=== PATIENT | male | born 1995 | race Caucasian/White ===

== ENCOUNTER 2017-04-22 23:48 | Emergency (ER) | payer BC ==
[~2017-04-22] VITALS: Ht 193 cm; Wt 79.5 kg
[2017-04-22 23:51] VITALS: TEMP 36.4; Ht 193 cm; Wt 79.5 kg
[2017-04-23 00:26] LABS: ISTAT HEMOGLOBIN 16.7 g/dl (14.0-18.0); ISTAT IONIZED CALCIUM 1.22 mmol/l
[2017-04-23 00:29] LABS: POINT OF CARE TROPONIN I < 0.030 ng/ml (0-0.045)
[2017-04-23 00:34] VITALS: BP 96/76; PULSE 71; O2SAT 100
--- NOTE | 2017-04-23 00:45 | EMERGENCY ROOM VISIT NOTE ---
History Report prepared by Sanjay: Tami Jackson Under the Supervision of: Dr. Vishal Amos D.O. First contact with patient: 23:57 Chief Complaint: CHEST PAIN Stated Complaint: SHARP PAIN IN LEFT CHEST, LIGHT HEADNESS, NUMB ARM History of Present Illness The patient is a 21 year old male who presents to the Emergency Room with complaints of constant left sided chest pain beginning just FAITH [facility]. The patient states that he was sitting on the couch when he had a sharp chest pain and his arms and the back of his head began tingling. He reports that he was playing video games when his symptoms occurred. The patient notes that 2 weeks prior to coming to [facility] he had intermittent heavy breathing that he saw his PCP for. He notes that his PCP saw an arrhythmia on EKG and suggested he see a outreach associate. He reports that he got an echocardiogram with the outreach associate that was normal. The patient complains of a sore throat last week that has resolved and heavy breathing today. He denies any current illness. 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 Denies any current illness. Review of Systems See HPI for pertinent positives & negatives. A total of 10 systems reviewed and were otherwise negative. Past Medical & Surgical Medical Problems: (1) No Known Active Medical Problems Family History No pertinent family history stated. Social History Smoking Status: Never Smoker Marital Status: single Housing Status: lives with roommate Occupation Status: [employer] [facility] [employer] student Current/Historical Medications No Active Prescriptions or Reported Meds Allergies Coded Allergies: No Known Allergies (Unverified , 04/23/17) Physical Exam Vital Signs Date Time Temp Pulse Resp B/P (MAP) Pulse Ox O2 Delivery O2 Flow Rate FiO2 04/23/17 00:36 Room Air 04/23/17 00:34 71 20 96/76 100 Room Air 04/22/17 23:51 36.4 81 20 145/63 99 Room Air Physical Exam CONSTITUTIONAL/VITAL SIGNS: Reviewed / noted above. GENERAL: Non-toxic in appearance. INTEGUMENTARY: Warm, dry, and [place]. HEAD: Normocephalic. EYES: without scleral icterus or trauma. ENT/OROPHARYNX: clear and moist. LYMPHADENOPATHY/NECK: Is supple without lymphadenopathy or meningismus. RESPIRATORY: Lungs clear and equal. CARDIOVASCULAR: Regular rate and rhythm. GI/ABDOMEN: Soft and nontender. No organomegaly or pulsatile mass. No rebound or guarding. Normal bowel sounds. EXTREMITIES: Warm and well perfused. BACK: No CVA tenderness. NEUROLOGICAL: Intact without focal deficits. PSYCHIATRIC: normal affect. MUSCULOSKELETAL: Normally developed with good muscle tone. Medical Decision & Procedures ER Provider Diagnostic Interpretation: X ray results and stated below per my interpretation. Chest X-Ray: No acute disease, no pneumonia, no pneumothorax. Laboratory Results Test 04/23/17 00:10 04/23/17 00:12 Bedside D-Dimer 194 ng/mlFEU (0-450) Bedside Troponin I < 0.030 ng/ml (0-0.045) Bedside Hemoglobin 16.7 g/dl (14.0-18.0) Bedside Hematocrit 49 % (42-52) Bedside Sodium 143 mEq/L (135-144) Bedside Potassium 3.0 mEq/L (3.3-5.0) Bedside Chloride 102 mEq/L (101-112) Bedside Total CO2 25 mEq/l (24-31) Anion Gap 21.0 mmol/L (16-25) Bedside Blood Urea Nitrogen 17 mg/dl (7-18) Bedside Creatinine 1.0 mg/dl Bedside Glucose (other) 89 mg/dl (70-99) Bedside Ionized Calcium ([place]) 1.22 mmol/l Laboratory results as stated above per my review. Medications Administered Medications (Trade) Dose Ordered Sig/Julianne Route Start Time Stop Time Status Last Admin Dose Admin Lorazepam (Ativan Tab) 0.5 mg NOW STAT SL 04/23/17 00:51 04/23/17 00:52 DC 04/23/17 00:59 0.5 MG ECG Indication: chest pain Rate (beats per minute): 70 Rhythm: normal sinus Findings: no acute ischemic change, no ectopy, other (sinus arrhythmia) ED Course 5017: Previous medical records were reviewed. The patient was evaluated in room B2. A complete history and physical examination was performed. 0045: Ativan Tab 0.5mg SL. 0053: On reevaluation, the patient is doing well. I discussed the results and findings with the patient. He verbalized agreement of the treatment plan. The patient was discharged home. Medical Decision the differential was considered includes acute myocardial infarction, acute coronary syndrome, myocarditis, pericarditis, pericardial effusions /tamponade, esophageal perforation, thoracic aortic dissection, pulmonary embolism, pneumonia, pneumothorax, pancreatitis, shingles, acute cholecystitis, perforated abdominal viscus. This is a 21-year-old male who presents to the ED with a chief complaint of a fuzzy feeling in fact visited as well as in his arms. He states that he had his friend check his pulse and his friend thought his pulse was normal. He had a similar episode a couple of weeks ago when he was having breathing. He saw his PCP and then was referred to a outreach associate and had an echocardiogram that was normal. The patient states this is the second time this occurred in the past 2 weeks. The patient denies any recent significant illness. He has had a slight runny nose last week but otherwise denied any other symptoms. There is no abdominal pains. The patient's exam was normal. He does appear to be slightly anxious and is breathing slightly faster deeper than normal. A twelve- lead EKG shows a normal sinus rhythm at a rate of 70. Chemistry panel reveals a potassium of 3.0, this could be related to hyperventilation. A chest x-ray did not show any acute disease. Troponin and d-dimer are negative. The patient was told results the test. He is felt to be stable for discharge and outpatient follow-up. He was given Ativan 0.5mg PO. Medication Reconcilliation Current Medication List: was personally reviewed by me Blood Pressure Screening Patient's blood pressure: Elevated blood pressure Blood pressure disposition: Elevated BP felt to be situational Impression Primary Impression: Hyperventilation syndrome Scribe Attestation The scribe's documentation has been prepared under my direction and personally reviewed by me in its entirety. I confirm that the note above accurately reflects all work, treatment, procedures, and medical decision making performed by me. Departure Information Dispostion Home / Self-Care Prescriptions No Active Prescriptions or Reported Meds Referrals No Doctor, Assigned (PCP) Forms HOME CARE DOCUMENTATION FORM, IMPORTANT VISIT INFORMATION Patient Instructions Hyperventilation Syndrome, My [facility] Additional Instructions Follow-up with your doctor for further care and evaluation in 1-2 days if symptoms persist. Return to the emergency department for worsening or new symptoms or any concerns. You have been examined and treated today on an emergency basis only. This is not a substitute for, or an effort to provide, complete comprehensive medical care. It is impossible to recognize and treat all injuries or illnesses in a single emergency department visit. It is therefore important that you follow up closely with your doctor. Call as soon as possible for an appointment.
[2017-04-23] MEDS ORDERED: LORAZEPAM 0.5 MG TAB SL STA (00:51)
--- NOTE | 2017-04-23 07:13 | DIAGNOSTIC IMAGING REPORT ---
CHEST ONE VIEW PORTABLE CLINICAL HISTORY: 21 years-old Male presenting with chest pain, Evaluate Fever/Sepsis. TECHNIQUE: Portable upright AP view of the chest was obtained. COMPARISON: None. FINDINGS: Cardiomediastinal silhouette normal. Hyperinflation. Lungs and pleural spaces clear. Osseous structures normal. Upper abdomen normal. IMPRESSION: 1. Hyperinflation. Otherwise no acute cardiopulmonary disease. Electronically signed by: Todd Leggett M.D. 04/23/2017 7:12 AM Dictated Date/Time: 04/23/2017 7:10 AM
== END 2017-04-23 01:03 | disposition home or self-care (01) ==
LOC: C.EDB 23:52
DX: F45.8 Other somatoform disorders (principal)